=== PATIENT | female | born 1990 | race Two or more races ===

== ENCOUNTER 2018-12-08 09:25 | Outpatient (CLI) | payer OTHER | END 2018-12-08 12:02 | disposition home or self-care (01) | LOC: LAB 09:25 | DX: D68.0 Von Willebrand disease (principal); D50.0 Iron deficiency anemia secondary to blood loss (chronic); N80.0 Endometriosis of uterus; E28.2 Polycystic ovarian syndrome; D68.8 Other specified coagulation defects; E04.2 Nontoxic multinodular goiter; D51.1 Vitamin B12 deficiency anemia due to selective vitamin B12 malabsorption with proteinuria ==

== ENCOUNTER 2025-06-01 13:54 | Emergency (ER) | payer OTHER ==
[~2025-06-01] VITALS: Ht 157.5 cm; Wt 68.0 kg
[2025-06-01] MEDS ORDERED: PRENATA CHEWAB1 EACH PO (14:31)
[2025-06-01] MEDS ORDERED: PROMETRIUM200 MG PO (14:31)
== END 2025-06-01 21:49 | disposition home or self-care (01) ==
LOC: ER 13:55
DX: O20.9 Hemorrhage in early pregnancy, unspecified (principal); O34.11 Maternal care for benign tumor of corpus uteri, first trimester; Z3A.01 Less than 8 weeks gestation of pregnancy

== ENCOUNTER → 2025-07-13 10:04 | Outpatient (CLI) | payer OTHER ==
[~2025-07-13 10:04] MED LIST: PRENATA CHEWAB1 EACH PO; PROMETRIUM200 MG PO
== END | disposition home or self-care (01) ==
LOC: PRENATAL 10:04
PROVIDERS: ATTEND Obstetrics & Gynecology Maternal & Fetal Medicine
DX: Z76.1 Encounter for health supervision and care of foundling (principal)